=== PATIENT | female | born 1985 | race Two or more races ===

== ENCOUNTER 2021-05-20 23:40 | Emergency (ER) | payer SELFPAY ==
[~2021-05-20] VITALS: Ht 170.2 cm; Wt 98.0 kg
[2021-05-20 23:41] VITALS: BP 139/86
[2021-05-21 00:15] LABS: BASOPHILS % (AUTO) 1 % (0-1); EOSINOPHILS % (AUTO) 4 % (1-7); LYMPHOCYTES % (AUTO) 23 % (22-44); MEAN CORPUSCULAR HGB CONC 34.2 g/dL (32.4-35.8); MEAN PLATELET VOLUME 6.8 fL (7.4-10.4); MONOCYTES % (AUTO) 8 % (2-9); NEUTROPHILS % (AUTO) 63 % (42-75); PLATELET COUNT 378 x10^3/uL (130-400); RED BLOOD COUNT 4.98 x10^6/uL (3.82-5.3)
[2021-05-21 00:17] LABS: ALANINE AMINOTRANSFERASE 25 U/L (12-78); ALBUMIN 3.3 g/dL (3.4-5.0); ANION GAP 3 mmol/L (5-15); CALCIUM 8.2 mg/dL (8.5-10.1); CHLORIDE 107 mmol/L (98-107); CREATININE 0.71 mg/dL (0.55-1.02)
[2021-05-21 00:18] LABS: SALICYLATE LEVEL < 1.7 mg/dL (2.8-20.0)
[2021-05-21 00:29] LABS: ALKALINE PHOSPHATASE 61 U/L (45-117); BILIRUBIN,TOTAL 0.3 mg/dL (0.2-1.0); TOTAL PROTEIN 6.9 g/dL (6.4-8.2)
--- NOTE | 2021-05-21 02:21 | NUR ---
TUB RIDER: URINE SENT AT THIS TIME. PT. TOLD THIS RN IN PRIVATE THAT PART OF THE REASON SHE IS HERE IS BECAUSE SHE BELIEVES SHE GOT AN STD FROM HER BOYFRIEND AND REQUSTED THE MD BE MADE AWARE; MD NOTIFIED.
--- NOTE | 2021-05-21 02:23 | NUR ---
PT GRABBED COUNTRY MANAGER AND STATED " I FEEL BETTER AND DON'T WANT TO BE HERE ANYMORE". PT SIGNED AMA PAPERWORK. RIDE HERE TO PICK PT UP.
--- NOTE | 2021-05-21 02:26 | NUR ---
IMMEDIATLY AFTER PT. SPOKE WITH THIS RN SHE LEFT ED AFTER SIGNING REQUEST FOR D/C PAPER WITH REGISTRATION. THIS RN HAD REQUESTED PT. REMAIN IN ED TO BE EVALUATED FOR STD AND SHE STATED "I AM NOT GOING TO WAIT ANY LONGER". PT. AMBULATORY WITH STEADY GAIT. NO DISTRESS NOTED.
[2021-05-21 02:40] LABS: AMPHETAMINE SCREEN, URINE Positive (Negative); BARBITURATE SCREEN, URINE Negative (Negative); BENZODIAZEPINE SCREEN, URINE Positive (Negative); CANNABINOID SCREEN, URINE Negative (Negative); COCAINE SCREEN, URINE Negative (Negative); METHADONE SCREEN, URINE Negative (Negative); OPIATE SCREEN, URINE Negative (Negative)
== END 2021-05-21 02:28 | disposition left against medical advice (07) ==
LOC: ED 23:45
DX: T42.4X1A Poisoning by benzodiazepines, accidental (unintentional), initial encounter (principal); Y92.89 Other specified places as the place of occurrence of the external cause
CPT/HCPCS: 36415; 80053; 80299; 80307; 80320; 80329; 84703; 85025; 99283; G0480